=== PATIENT | male | born 1980 | race Caucasian/White ===

== ENCOUNTER → 2016-05-11 | Outpatient (CLI) | payer BC ==
[2016-05-11 10:26] LABS: CHLORIDE,CL 109 mmol/L (98-110); SODIUM,NA 141 mmol/L (136-146)
== END | disposition home or self-care (01) ==
LOC: MW.CHIM 09:44
PROVIDERS: ATTEND Internal Medicine
DX: K70.0 Alcoholic fatty liver (principal)
CPT/HCPCS: 36415; 80053; 85025; 85610